=== PATIENT | female | born 1970 | race Caucasian/White ===

== ENCOUNTER 2017-06-15 09:52 | Emergency (ER) | payer BC ==
[2017-06-15] MEDS ORDERED: Ibuprofen 800 MG Tab PO ONE (10:10)
--- NOTE | 2017-06-15 10:13 | EDM.PDOC ---
ED HPI GENERAL MEDICAL PROBLEM - General Stated Complaint: SOB,FEVER Time Seen by Provider: 06/15/17 09:53 Source of Information: Reports: Patient History Limitations: Reports: No Limitations - History of Present Illness INITIAL COMMENTS - FREE TEXT/NARRATIVE: History of present illness: []Patient began having body aches and fever last night. She has not had the flu shot this year but reports testing positive for influenza once previously this year. Patient states she is prone to pneumonia and does suffer from anxiety. She complains of difficulty breathing this morning but states she is not short of breath. Review of systems: As per history of present illness and below otherwise all systems reviewed and negative. Past medical history: As per history of present illness and as reviewed below otherwise noncontributory. Surgical history: As per history of present illness and as reviewed below otherwise noncontributory. Social history: No reported history of drug or alcohol abuse. Family history: As per history of present illness and as reviewed below otherwise noncontributory. Physical exam: General: Well developed, well nourished in NAD patient has intermittent short shallow gasps but stopped when she is engaged in conversation. HEENT: Atraumatic, normocephalic, pupils reactive, negative for conjunctival pallor or scleral icterus, mucous membranes moist, throat clear, neck supple, nontender, trachea midline. Lungs: Clear to auscultation, breath sounds equal bilaterally, chest nontender. No rhonchi or chest wall retractions Heart: S1S2, regular, negative for clicks, rubs, or JVD. Abdomen: Soft, nondistended, nontender. Negative for masses or hepatosplenomegaly. Negative for costovertebral tenderness. Pelvis: Stable nontender. Genitourinary: Deferred. Rectal: Deferred. Extremities: Atraumatic, negative for cords or calf pain. Neurovascular unremarkable. Neuro: Awake, alert, oriented. Cranial nerves II through XII unremarkable. Cerebellum unremarkable. Motor and sensory unremarkable throughout. Exam nonfocal. Diagnostics: []Labs show slightly elevated white count 13,000 with a shift, vital signs stable influenza negative Therapeutics: [] Impression: []Bronchitis Plan: []Zithromax as directed increase fluids Motrin and Tylenol for pain follow-up with PMD as needed Definitive disposition and diagnosis as appropriate pending reevaluation and review of above. body aches Pain Score (Numeric/FACES): 3 - Related Data Allergies Allergy/AdvReac Type Severity Reaction Status Date / Time Penicillins Allergy Cannot Verified 06/15/17 09:58 Remember Sulfa (Sulfonamide Allergy Cannot Verified 06/15/17 09:58 Antibiotics) Remember Home Meds: Home Meds Azithromycin [IJD: Azithromycin] 250 mg PO DAILY #6 tab 06/15/17 [Rx] Venlafaxine HCl [Venlafaxine ER] 150 mg PO DAILY 06/15/17 [History] Past Medical History Respiratory History: Reports: Asthma Psychiatric History: Reports: Anxiety, Depression - Past Surgical History Female Surgical History: Reports: Section, Hysterectomy Social & Family History - Family History Family Medical History: Noncontributory - Tobacco Use Second Hand Smoke Exposure: Yes - Caffeine Use Caffeine Use: Reports: None - Recreational Drug Use Recreational Drug Use: No ED ROS GENERAL - Review of Systems Review Of Systems: See Below (See history of present illness) ED EXAM, GENERAL - Physical Exam Exam: See Below (See history of present illness) Course - Vital Signs Last Recorded V/S: Last Vital Signs Temp 100.7 F H 06/15/17 10:58 Pulse 100 06/15/17 10:58 Resp 18 06/15/17 10:58 BP 102/57 L 06/15/17 10:58 Pulse Ox 100 06/15/17 10:58 - Orders/Labs/Meds Labs: Laboratory Tests 06/15/17 06/15/17 Range/Units 10:16 10:16 WBC 13.15 H (4.0-11.0) K/uL RBC 4.46 (4.30-5.90) M/uL Hgb 11.8 L (12.0-16.0) g/dL Hct 35.5 L (36.0-46.0) % MCV 79.6 L (80.0-98.0) fL MCH 26.5 L (27.0-32.0) pg MCHC 33.2 (31.0-37.0) g/dL RDW Std Deviation 40.0 (28.0-62.0) fl RDW Coeff of Andi 14 (11.0-15.0) % Plt Count 276 (150-400) K/uL MPV 9.60 (7.40-12.00) fL Neut % (Auto) 91.2 H (48.0-80.0) % Lymph % (Auto) 3.1 L (16.0-40.0) % Ralls % (Auto) 5.2 (0.0-15.0) % Eos % (Auto) 0.2 (0.0-7.0) % Baso % (Auto) 0.3 (0.0-1.5) % Neut # (Auto) 12.0 H (1.4-5.7) K/uL Lymph # (Auto) 0.4 L (0.6-2.4) K/uL Ralls # (Auto) 0.7 (0.0-0.8) K/uL Eos # (Auto) 0.0 (0.0-0.7) K/uL Baso # (Auto) 0.0 (0.0-0.1) K/uL Nucleated RBC % 0.0 /100WBC Nucleated RBCs # 0 K/uL Sodium 132 L (136-146) mmol/L Potassium 3.3 L (3.5-5.1) mmol/L Chloride 101 (98-110) mmol/L Carbon Dioxide 21 (21-31) mmol/L BUN 14 (6.0-23.0) mg/dL Creatinine 0.8 (0.6-1.5) mg/dL Est Cr Clr Drug Dosing 63.12 mL/min Estimated GFR (MDRD) > 60.0 ml/min Glucose 120 H (60-110) mg/dL Calcium 10.3 (8.8-10.8) mg/dL Total Bilirubin 0.3 (0.1-1.5) mg/dL AST 35 (5-40) IU/L ALT 55 H (8-54) IU/L Alkaline Phosphatase 91 (40-150) Total Protein 7.8 (6.0-8.0) g/dL Albumin 4.8 (3.5-5.0) g/dL Globulin 3.0 (2.0-3.5) g/dL Albumin/Globulin Ratio 1.6 (1.3-2.8) Meds: Medications Discontinued Medications Generic Name Dose Route Start Last Admin Trade Name Freq PRN Reason Stop Dose Admin Ibuprofen 800 mg 06/15/17 10:10 06/15/17 10:56 Motrin PO 06/15/17 10:11 800 mg ONETIME ONE Administration Departure - Departure Time of Disposition: 11:14 Disposition: Home, Self-Care 01 Condition: Good Clinical Impression: Bronchitis - Discharge Information Prescriptions: Azithromycin [IJD: Azithromycin] 250 mg PO DAILY #6 tab Referrals: PCP,Unknown [Primary Care Provider] - Real Millan MD [Resident] - (Follow-up as needed) Additional Instructions: The following information is given to patients seen in the emergency department who are being discharged to home. This information is to outline your options for follow-up care. We provide all patients seen in our emergency department with a follow-up referral. The need for follow-up, as well as the timing and circumstances, are variable depending upon the specifics of your emergency department visit. If you don't have a primary care physician on staff, we will provide you with a referral. We always advise you to contact your personal physician following an emergency department visit to inform them of the circumstance of the visit and for follow-up with them and/or the need for any referrals to a consulting specialist. The emergency department will also refer you to a specialist when appropriate. This referral assures that you have the opportunity for follow-up care with a specialist. All of these measure are taken in an effort to provide you with optimal care, which includes your follow-up. Under all circumstances we always encourage you to contact your private physician who remains a resource for coordinating your care. When calling for follow-up care, please make the office aware that this follow-up is from your recent emergency room visit. If for any reason you are refused follow-up, please contact the [facility] Emergency Department at and asked to speak to the emergency department charge nurse. Zithromax as directed Tylenol Motrin for pain follow-up with Dr. Millan in the residency clinic as needed [facility] [address] [place] [id number]
[2017-06-15 10:44] LABS: CHLORIDE,CL 101 mmol/L (98-110); SODIUM,NA 132 mmol/L (136-146)
== END 2017-06-15 11:30 | disposition home or self-care (01) ==
LOC: MW.ED 09:52
DX: J40 Bronchitis, not specified as acute or chronic (principal); Z88.0 Allergy status to penicillin; Z88.2 Allergy status to sulfonamides; Z79.899 Other long term (current) drug therapy
CPT/HCPCS: 36415; 80053; 85025; 87804; 99285; A9270; 99284